=== PATIENT | male | born 2000 | race Hispanic/Latino ===

== ENCOUNTER 2019-12-26 12:50 | Emergency (ER) | payer SELFPAY ==
[2019-12-26 13:03] VITALS: BP 109/74
== END 2019-12-26 14:00 | disposition home or self-care (01) ==
LOC: ED 12:50
DX: F60.9 Personality disorder, unspecified (principal); F17.200 Nicotine dependence, unspecified, uncomplicated; F14.10 Cocaine abuse, uncomplicated; F12.10 Cannabis abuse, uncomplicated; F15.10 Other stimulant abuse, uncomplicated
CPT/HCPCS: 99283